=== PATIENT | male | born 1960 | race Caucasian/White ===

== ENCOUNTER → 2021-05-14 13:35 | Outpatient (CLI) | payer OTHER, SELFPAY ==
--- NOTE | 2021-05-14 13:45 | DI.CT.S_ITS ---
PROCEDURE: CT LUMBAR SPINE WO CON INDICATIONS: Spinal stenosis, lumbar region TECHNIQUE: Noncontrast 3 mm thick sections acquired from the T12 level to the sacrum. Sagittal and coronal reformats were constructed. For radiation dose reduction, the following was used: automated exposure control. COMPARISON: [facility] [place], RF, LUMBAR TRANSFORAMINAL HUBER, 04/03/2021, 16:10. [facility] [place], MR, MR LUMBAR SPINE WITHOUT CONTRAST, 10/04/2020, 11:12. FINDINGS: Image quality: Excellent. Bones: There is straightening of normal lumbar lordosis. Very mild levoscoliosis of lower lumbar spine centered at L4 level is seen. No acute vertebral body compression fractures. No suspicious lytic or blastic bony lesions. No pars defects. T12-L1: Mild degenerative endplate changes and loss of disc height. No significant disc bulge, canal stenosis or neural foraminal narrowing. L1-L2: Mild degenerative endplate changes and mild to moderate loss of disc height. Mild broad-based disc bulge with mild central canal stenosis. Bilateral facet arthrosis is also seen. No significant neural foraminal narrowing. L2-L3: There is moderate loss of disc height and degenerative endplate changes. Diffuse disc bulge and bilateral facet arthrosis is seen with mild central canal stenosis, no significant neural foraminal narrowing. L3-L4: Significant loss of disc height and moderate degenerative endplate changes. Broad-based disc bulge and bilateral facet arthrosis is seen causing moderate central canal stenosis and moderate to severe bilateral neural foraminal narrowing slightly worse on the right side. L4-L5: Significant loss of disc height and degenerative endplate changes are seen . There is broad-based disc bulge and bilateral facet arthrosis causing [id number] central canal stenosis and moderate to severe bilateral neural foraminal narrowing worse on the left side unchanged from previous MRI study. L5-S1: There is moderate loss of disc height and degenerative endplate changes. Broad-based disc bulge and bilateral facet arthrosis is seen with mild central canal stenosis and moderate left worse than right bilateral neural foraminal narrowing. Soft tissues: No retroperitoneal masses or hematomas. Visualized aorta is normal in caliber. IMPRESSION: 1. Mild levoscoliosis as above. No acute compression fracture or spondylolisthesis. 2. Degenerative disc disease throughout lumbar spine more prominent at L3-4 and L4-5 levels as described above not significantly changed from previous MR study. Dictated by: Rambo Pike M.D. on 05/14/2021 at 16:35 Approved by: Rambo Pike M.D. on 05/14/2021 at 16:54
== END ==
PROVIDERS: PCP Internal Medicine; Referring Provider Orthopaedic Surgery Orthopaedic Surgery of the Spine; Visit Provider Orthopaedic Surgery Orthopaedic Surgery of the Spine
DX: M48.062 Spinal stenosis, lumbar region with neurogenic claudication (principal); M51.36 Other intervertebral disc degeneration, lumbar region; M41.86 Other forms of scoliosis, lumbar region
CPT/HCPCS: 72131

== ENCOUNTER → 2022-05-01 13:53 | Outpatient (CLI) | payer OTHER, SELFPAY ==
--- NOTE | 2022-05-01 | DI.CT.S_ITS ---
PROCEDURE: CT LUMBAR SPINE WO CON INDICATIONS: SPINAL STENOSIS OF LUMBAR REGION TECHNIQUE: Noncontrast 3 mm thick sections acquired from the T12 level to the sacrum. Sagittal and coronal reformats were constructed. For radiation dose reduction, the following was used: automated exposure control. COMPARISON: [facility], CT, CT LUMBAR SPINE WO CON, 05/14/2021, 13:45. [facility]., MR, MR LUMBAR SPINE WITH/WITHOUT CONTRAST, 07/11/2021, 11:21. [facility], CR, XR LUMBAR SPINE WITH FLEXION EXTENSION 5 VIEWS, 09/28/2021, 9:42. FINDINGS: Image quality: Excellent. Bones: Mild levoconvex curvature of the lumbar spine. Multilevel degenerative retrolisthesis is seen measuring 3 mm at L2-3, 3 mm at L3-4, 2 mm at L4-5, and 2 mm at L5-S1. acute vertebral body compression fractures. No suspicious lytic or blastic bony lesions. No pars defects. T12-L1: Mild loss of disc space height with small posterior disc-osteophyte complex, which does not result in significant spinal canal stenosis or neural foraminal narrowing L1-L2: Mild loss of disc space height and mild circumferential disc bulging without significant spinal canal stenosis or neural foraminal narrowing. L2-L3: Mild loss of disc space height and circumferential disc bulging as well as grade 1 retrolisthesis of L2 on L3, which result in mild narrowing of the spinal canal and [id number] bilateral neural foraminal narrowing. L3-L4: Loss of disc space height and grade 1 retrolisthesis of L3 on L4 with moderate bilateral facet hypertrophy and buckling of the ligamentum flavum. Findings result in moderate to severe narrowing of the spinal canal with effacement of the bilateral lateral recesses and moderate to severe right and moderate left neural foraminal narrowing. L4-L5: Loss of disc space height and mild grade 1 anterolisthesis of L4 on L5 with circumferential disc bulging as well as mild to moderate bilateral facet hypertrophy and buckling of the ligamentum flavum. Findings result in moderate narrowing of the spinal canal with effacement of the lateral recesses and moderate right and moderate to severe left neural foraminal narrowing. L5-S1: Loss of disc space height and mild circumferential disc bulging as well as moderate bilateral facet hypertrophy, which result in moderate right and moderate to severe left neural foraminal narrowing without significant spinal canal stenosis. Soft tissues: No retroperitoneal masses or hematomas. Visualized aorta is normal in caliber. IMPRESSION: 1. Multilevel degenerative disc disease and facet hypertrophy as described in detail in the body of the report, as well as multilevel degenerative retrolisthesis and mild levoconvex curvature. 2. Moderate to severe spinal canal narrowing is seen at L3-4, minimally progressed when compared to the CT and MRI from 2021. 3. High-grade neural foraminal narrowing is seen at the L3-4 level on the right and the L4-5 and L5-S1 levels on the left. Approved by: Hung Riley M.D. on 05/01/2022 at 20:07
== END ==
PROVIDERS: PCP Internal Medicine; Referring Provider Orthopaedic Surgery Orthopaedic Surgery of the Spine; Visit Provider Orthopaedic Surgery Orthopaedic Surgery of the Spine
DX: M48.062 Spinal stenosis, lumbar region with neurogenic claudication (principal); M48.07 Spinal stenosis, lumbosacral region; M51.36 Other intervertebral disc degeneration, lumbar region; M51.37 Other intervertebral disc degeneration, lumbosacral region
CPT/HCPCS: 72131

== ENCOUNTER → 2022-05-07 13:56 | Outpatient (CLI) | payer OTHER, SELFPAY ==
[2022-05-07 15:34] LABS: Add Manual Diff / Slide Review NO; Basophils Absolute Auto 0 /uL (0-100); Basophils Percent Auto 0.5 % (0-2); Eosinophils Absolute Auto 600 /uL (0-450); Eosinophils Percent Auto 7.8 % (2-4); Hematocrit 40.1 % (41-53); Hemoglobin 13.6 g/dL (13.5-17.5); Lymphocytes Absolute Auto 2600 /uL (1100-4500); Lymphocytes Percent Auto 35.5 % (25-40); Mean Corpuscular HGB Conc 33.8 % (30-36); Mean Corpuscular Hemoglobin 29.9 PG (26-34); Mean Corpuscular Volume 88.3 fL (80-100); Monocytes Absolute Auto 800 /uL (0-900); Monocytes Percent Auto 10.6 % (3-14); Neutrophils Absolute Auto 3300 /uL (1500-7000); Neutrophils Percent Auto 45.6 % (50-75); Platelet Count 258 X10^3/uL (150-400); Red Blood Cell Count 4.54 X10^6/uL (4.5-5.9); Red Cell Distribution Width 13.6 % (11.6-14.8); White Blood Cell Count 7.3 X10^3/uL (4.5-11.0)
[2022-05-07 15:48] LABS: Hemoglobin A1C% w Est Avg Glu 5.7 % (4.0-6.0)
[2022-05-07 16:10] LABS: BUN Creatinine Ratio 12.9 (6-22); Blood Urea Nitrogen 12 mg/dL (9-20); Calcium 9.3 mg/dL (8.4-10.2); Carbon Dioxide 23 mmol/L (22-32); Chloride 104 mmol/L (98-107); Estimated Glomerular Filt Rate > 60 mL/min (>60); Glucose 102 mg/dL (80-110); HEMOLYSIS < 15 (0-50); Potassium 3.8 mmol/L (3.4-5.1); Sodium 138 mmol/L (137-145)
== END ==
PROVIDERS: PCP Internal Medicine; Referring Provider Orthopaedic Surgery Orthopaedic Surgery of the Spine; Visit Provider Orthopaedic Surgery Orthopaedic Surgery of the Spine
DX: Z01.818 Encounter for other preprocedural examination (principal); Z01.812 Encounter for preprocedural laboratory examination; R73.9 Hyperglycemia, unspecified
CPT/HCPCS: 36415; 80048; 83036; 85025; 93005

== ENCOUNTER 2022-06-12 06:28 | Inpatient (IN) | payer OTHER, SELFPAY ==
[2022-06-05 09:04] VITALS: BMI 31.0
[2022-06-12] VITALS (24 sets, daily range): BP systolic 92–138; BP diastolic 60–92; PULSE 64–97; RESP 12–18; TEMP 36.2–36.9; O2SAT 92–98; BMI 31.0
[2022-06-12] MEDS: LACTATED RINGERS 1,000 ML 42 ML IV ×4 (07:11→14:54)
[2022-06-12 07:12] LABS: COVID19 -Nasal RAPID Negative (Negative)
[2022-06-12] MEDS: PREGABALIN 75 MG CAPSULE PO (07:13)
--- NOTE | 2022-06-12 07:36 | PM.PREOP ---
Pre-operative Note COVID-19 COVID-19 status: Negative Result date/Date tested (Pos, Neg/Pending): 06/11/22 Criteria for continued procedure: Expected advancement of disease process, Possibility delay results in more complex future surgery or treatment, Increased loss of function, Continuing or worsening of significant or severe pain, Deterioration of the patient's condition or overall health and Delay expected to result in less-positive ultimate med/surg outcome Interval Note History & Physical reviewed/Exam performed by Physician: Yes Changes to H&P: No
[2022-06-12] MEDS: CLINDAMYCIN 900 MG/50 ML PIGGYBACK 50 MG IV ×3 (08:00→23:28)
--- NOTE | 2022-06-12 08:28 | SUR.OPER ---
Prone on spine table, head in foam head support, padded chest and pelvic supports, gel pad at knees, lower legs supported by pillows; nipples, genitalia and toes free of pressure, gelpad, placed between heels, arms secured on foam padded arm boards at <90 degrees abduction. Tape over blanket at thigh secured to table.
[2022-06-12] MEDS: BUPIVACAINE LIPOSOME 266 MG/20 ML VIAL INJ (08:39)
[2022-06-12] MEDS: BUPIVACAINE 0.25% (PF) 30 ML, EPINEPHrine 0.3 MG INJ (08:39)
[2022-06-12] MEDS: ACETAMINOPHEN IV 1,000 MG/100 ML VIAL 400 MG IV (09:15)
--- NOTE | 2022-06-12 13:00 | DI.RAD.S_ITS ---
PROCEDURE: XR LUMBAR SPINE 2-3V INDICATIONS: L3-4, L4-5, L5-S1 TLIF TECHNIQUE: 3 intraoperative fluoroscopic views of the lumbar spine were acquired. COMPARISON: None. FINDINGS: Intraoperative fluoroscopic images shows posterior transpedicular fusion hardware at L3-4 through L5-S1 levels with intervertebral spacer placement at these levels. IMPRESSION: Fluoro guidance was provided intraoperatively for posterior fusion at L3-4 through L5-S1 levels. Dictated by: Rambo Pike M.D. on 06/12/2022 at 13:13 Approved by: Rambo Pike M.D. on 06/12/2022 at 13:14
--- NOTE | 2022-06-12 13:13 | P.OP_ITS ---
Operative Date/Time/Diagnoses Date of procedure: 06/12/22 Time of procedure: 07:40 Pre-op diagnosis: 1. Lumbar spinal stenosis with radiculopathy 2. History of laminectomy with epidural scarring and radiculopathy 3. Lumbar disc herniation with radiculopathy Post-op diagnosis: same Procedure & Clinicians Procedure: 1. L3-4, L4-5, L5-S1 Postero-lateral and posterior interbody fusion 2. L3-4, L4-5, L5-S1 interbody cage placement. 3. L3-4, L4-5, L5-S1 decompressive laminectomy with bilateral facetecomies 4. L3-4, L4-5, L5-S1 Posterior segmental instrumentation 5. Mcgraw of bone marrow from iliac crest 6. Utilization of microsurgical technique and operating microscope 7. Utilization of robotic assisted navigation Same procedure as scheduled: Yes Indications: Patient has been having chronic back pain and worsening lumbar radiculopathy with history of work injury 2 years ago at the time of onset of his symptoms. Patient failed multiple conservative management with worsening pain weakness and numbness in his lower extremity. Patient has been having difficulty performing activity of daily living. After discussing risks benefits of treatment options, patient elected proceed with surgery. Surgeon: Juan Khanna [facility]plement[facility] Therapists: Sydney Brower Click Yes if Unassisted: No Anesthesia Type: General Operative Notes Closure Type: primary Specimen(s): none sent Prosthetic devices, grafts, tissues, transplants, or devices: Globus CREO MIS screws, Rise cages Applied: catheter Estimated Blood Loss (mL): 850 Blood products transfused: none Procedure in detail: Patient was seen in the preoperative area. Risks and benefits of the surgery was discussed with the patient. Informed consent was obtained from the patient and placed in the chart. Surgical site was marked. Patient was taken to the operative room. General anesthesia was administered. Prophylactic antibiotic was given to the patient less than 30 min before the incision was made. Patient was placed into a prone position on the Allen table. Patient's back was then prepped and draped in the sterile fashion. Time-out was performed at this time. After patient was prepped and draped, patient's PSIS was palpated and marked bilaterally. Small 1 cm incision was made over the PSIS for placement of the reference probes. Two trocar was placed into the PSIS 1 on each side. The reference probe was attached to the trocar of the reference apparatus. At this time the C-arm imaging was used to confirm AP and lateral of L3-4, L4- L5, L5-S1 vertebrae and merged the C-arm imaging using the [employer] robotic navigation system with the CT of the lumbar spine. After successful merging was completed and confirmed, skin marker was used to kam out the skin incision using the [employer] robotic arm. Bilateral incision was made at this time. Pre templated trajectory was used and guided using the [employer] robotic navigation system for bilateral L3, L4, L5, S1 pedicle screw placement. This was done by using the robotic arm to guide the high-speed bur to make a cortical entry point. Next a drill was placed also using the robotic arm and guided using the navigation system drilling partially through bilateral L3, L4, L5 and S1 pedicles. Next L3, L4, L5, S1 pedicle screws it was pre templated and measured was placed onto the power taxi driver and inserted into the pedicles bilaterally. After all 8 screws were placed C-arm imaging was taken of both AP and lateral to confirm the placement. Excellent placement of the screws were confirmed and a matched precisely with the pre planned screw placement using the navigation system. MARs retractor was inserted using [employer] guidence. Globus MARS retractors was placed inside the incision and docked onto the L3, L4 and L5 lamina. Using microsurgical technique and operating microscope, a L3, L4, L5 laminectomy and L3-4, L4-5, L5-S1 facetectomy was performed using a Kerrison rongeur. Patient was found have severe lateral recess and neural foramen stenosis which was fully decompressed after the laminectomy facetectomy. More than 75% of the facets were removed during the process of decompression rendering L3-4, L4-5, L5-S1 level grossly unstable and required a fusion procedu re at the same time. Patient was also found to have significant epidural scarring from previous laminectomy which was carefully dissected and removed to further decompress the lateral recess and neural foramen. The disc space at L3- 4, L4-5, L5-S1 was identified, and a total diskectomy was performed at L3-4, L4- 5, L5-S1 level. The endplates were decorticated using a rasp and shaver. The total diskectomy and decortication was performed at L3-4, L4-5, L5-S1 level in order to to accomplish a L3-4, L4-5, L5-S1 fusion. The local bone from the laminectomy and facetectomy was saved for local bone grafting. After the total diskectomy and decortication was completed, Trifecta bone graft material was combined with local bone that was harvested earlier. At this time, a separate skin is incision was made over the iliac crest. A Jamshidi needle was inserted into the iliac crest through a separate skin incision. 5 cc of bone marrow aspiration was obtained through the separate skin incision using a Jamshidi needle from the iliac crest. The bone marrow aspiration was combined with local bone and the Trifecta bone grafting material. The bone grafting material was placed into the L3-4, L4-5, L5-S1 interbody space along with a expandable cage. The cage was expanded to its maximum height using the torque limiting screwdriver. The disc preparation as well as the cage insertion were also performed under navigation guidance. After the cage was placed, AP and lateral C-arm imaging was taken to confirm placement of the cage and excellent position was confirmed. Globus MARS retractor was inserted and docked onto the L3-4, L4-5, L5-S1 posterolateral gutter on the right side. Using the power drill, posterior- lateral decortication was performed at L3-4, L4-5, L5-S1 level until bleeding cortical bone was identified. The remaining bone grafting material was placed into the L3-4, L4-5, L5-S1 posterior lateral gutter he order to accomplish posterolateral fusion at the L3-4, L4-5, L5-S1 level. At this time the tulips were attached to the L3, L4, L5, S1 pedicle screw shanks. After measuring the length of the rods, they were inserted into the tulips of the pedicle screws and locked in place using locking caps and torque limiting screwdriver bilaterally. Total 6 caps and 2 titanium rods was used in order to complete the posterior instrumentation construct. After all the hardware was placed, and confirmed with AP and lateral C-arm imaging, the wound was then irrigated with sterile normal saline and packed with Ray-Liu gauze for 3 min to accomplish hemostasis. After the gauze was removed the deep fascia was closed with #1 Vicryl suture. The subcutaneous layer was closed with 2-0 Vicryl. The skin was closed with skin raymundo. Patient tolerated the procedure well. There were no complications. Neuro monitoring system was used to monitor patient's neurologic status throughout entire procedure. There was no disturbance of the neural monitoring signals throughout the case. Complications: none Post-operative Condition: stable Disposition: PACU Plan for aftercare: Admit to inpatient hospital
[2022-06-12] MEDS: HYDROMORPHONE 2 MG INJ IV ×5 (13:43→14:28)
[2022-06-12] MEDS: hydrOXYzine pamoate 25 MG CAPSULE 50 MG PO (14:07)
[2022-06-12] MEDS: OXYCODONE IR 5 MG TABLET PO ×2 (14:15→14:46)
--- NOTE | 2022-06-12 15:28 | PT-IP ANOTE ---
Called RN and RN noted pt just arrived on floor and not appropriate for PT.
[2022-06-12] MEDS: TIZANIDINE 4 MG TABLET PO (15:51)
[2022-06-12] MEDS: ACETAMINOPHEN 325 MG TABLET 650 MG PO ×2 (15:51→21:17)
[2022-06-12] MEDS: HYDROMORPHONE 0.5 MG INJ IV ×2 (16:41→21:13)
[2022-06-12] MEDS: OXYCODONE IR 10 MG TABLET PO ×2 (19:09→23:28)
[2022-06-12] MEDS: hydrOXYzine pamoate 25 MG CAPSULE PO ×2 (19:09→23:28)
[2022-06-12] MEDS: METOPROLOL ER 25 MG TABLET 12.5 MG PO (21:14)
[2022-06-12] MEDS: SENNOSIDES 8.6 MG TABLET 17.2 MG PO (21:14)
[2022-06-12] MEDS: lisinopriL 20 MG TABLET PO (21:15)
[2022-06-12] MEDS: ATORVASTATIN 20 MG TABLET PO (21:16)
[2022-06-12] MEDS: PANTOPRAZOLE DR 20 MG TABLET PO (21:16)
[2022-06-12] MEDS: DOCUSATE 100 MG CAPSULE PO (21:18)
[2022-06-13] VITALS (11 sets, daily range): BP systolic 85–140; BP diastolic 40–83; PULSE 68–78; RESP 16–20; TEMP 36.3–37.3; O2SAT 91–97
--- NOTE | 2022-06-13 01:51 | PC.NURSE ---
Pt got out of bed to brush his teeth. He also ambulated in the room , denies dizzines.
[2022-06-13] MEDS: hydrOXYzine pamoate 25 MG CAPSULE PO (03:09)
[2022-06-13] MEDS: OXYCODONE IR 10 MG TABLET PO ×5 (03:09→22:23)
[2022-06-13 05:46] LABS: Hematocrit 30.7 % (41-53); Hemoglobin 10.5 g/dL (13.5-17.5)
[2022-06-13] MEDS: TIZANIDINE 4 MG TABLET PO ×3 (05:48→21:42)
[2022-06-13] MEDS: HYDROMORPHONE 0.5 MG INJ IV ×3 (08:20→21:41)
[2022-06-13] MEDS: ACETAMINOPHEN 325 MG TABLET 650 MG PO ×3 (09:35→22:25)
[2022-06-13] MEDS: DOCUSATE 100 MG CAPSULE PO ×2 (09:35→21:43)
[2022-06-13] MEDS: PANTOPRAZOLE DR 20 MG TABLET PO ×2 (09:35→21:42)
[2022-06-13] MEDS: TRAMADOL 50 MG TABLET PO ×2 (09:35→15:24)
--- NOTE | 2022-06-13 10:10 | PT.IIE ---
Current Diagnoses Foot drop, left foot (06/12/22) Spondylolisthesis, lumbar region (06/12/22) Spinal stenosis, lumbar region with neurogenic claudication (06/12/22) Surgery Performed Operation Date: 06/12/22 07:45 Actual Procedures p L3-4, L4-5,L5-S1 TLIF w/ posterior Instrumentation -Robotic - Juan Khanna MD Surgical History (Last Reviewed 06/13/22 @ 10:13 by Anisa Maguire PA-C) H/O vasectomy History of open reduction and internal fixation (ORIF) procedure (12/2021) History of open reduction and internal fixation (ORIF) procedure (1982) History of prostatectomy (~2015) Hx of heart artery stent (05/2005) Hx of shoulder surgery Medical History (Last Reviewed 06/13/22 @ 10:13 by Anisa Maguire PA-C) Acute non-ST segment elevation myocardial infarction (05/2005) CAD (coronary artery disease) DDD (degenerative disc disease) Eczema Erectile dysfunction GERD (gastroesophageal reflux disease) Gout History of prostate cancer (~2015) HLD (hyperlipidemia) HTN (hypertension) Hypercholesteremia Left foot drop Low back pain Peanut allergy Sciatica Seasonal allergies Spinal stenosis Tachycardia Trimalleolar fracture (01/2022) Vitamin D deficiency Physical Therapy Inpatient Evaluation/Re-Eval M1 PT/OT-IP Prior Functional Status Start: 06/13/22 10:14 Freq: NEEDED Status: Active Protocol: Document 06/13/22 09:45 DCW (Rec: 06/13/22 10:28 DC [id number]) Medical Review Prior Functional Status Medical History Reviewed Yes Diet/Fluid Consistency Regular Communication WNL Mobility and Gait WNL Social History Household Members spouse Living Arrangements House Number of Floors (Floors) Two Floors Number of Stairs To Enter/Railing? 2 JIMY, no railing 16 stairs to second level, railing M2 PT-IP Current Condition Start: 06/13/22 10:14 Freq: NEEDED Status: Active Protocol: Document 06/13/22 09:45 DCW (Rec: 06/13/22 10:28 DCW [id number]) Physical Therapy Current Condition Current Condition Evaluation Date 06/13/22 Treatment Diagnosis L3-4-5-S1 TLIF Onset Date 06/12/22 M3 PT-IP Subjective Start: 06/13/22 10:14 Freq: NEEDED Status: Active Protocol: Document 06/13/22 09:45 DCW (Rec: 06/13/22 10:28 [facility] [id number]) Subjective Physical Therapy Visit Type Type Initial Evaluation Visit Start Time 09:45 Visit Stop Time 10:10 Total Visit Minutes 25 Notes Pt semi-reclined in bed upon therapist entering room, (who is an RN) at bedside. Reports he has been having difficulty with pain control, rating pain 6/10 at rest. Did not sleep well last night, has been OOB once late last night . Agreeable to PT, motivated to get up and move some despite pain. 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 Patient Goals Return home Therapy Pain Assessment Pain When Pain Assessed At Rest Pain Present Pain Present Pain Reported Location back Intensity 6 Scale Used Numeric (0 - 10) M4 PT-IP Mobility and Gait Start: 06/13/22 10:14 Freq: NEEDED Status: Active Protocol: Document 06/13/22 09:45 DCW (Rec: 06/13/22 10:28 [facility] [id number]) PT-Bed Mobility Assessment Rolling Type of Rolling Log Rolling,Roll to Right Level of Assist Minimal Assistance,1 Person Assistance Supine to Sit Supine to Sit Minimal Assistance,1 Person Assistance,Head of Bed Elevated Scooting Scooting to Edge of Bed Contact Guard Assistance Scooting Up and Down in Bed Contact Guard Assistance PT-Transfer Assessment Sit to and From Stand Sit to and from Stand Standby Assistance,Use of Upper Extremities Equipment Transfer Assistive Device Bed Rail,Front Wheeled Walker Comments Mobility Comments Bed mobility performed making proper use of log rolling without verbal instruction, assisted in log roll and side-lying->sit. Pt performed sit->stand SBA using UEs, bed rails, and FWW. Upon standing, BP measured 125/82. Gait Assessment Gait Gait Assistance Required: Standby Assistance Distance (Feet) 400 Able to Maintain Weight Bearing Status Yes During Gait Assistive Devices Assistive Device Front Wheeled Walker Gait Deviations General Gait Pattern Flexed Trunk Factors Limiting Gait Function Factors Limiting Gait Function Pain Comments Gait Comments Pt ambulated in hallway from room, down to stairs, up/down stairs, then down to opposite end of hallway near ICU, finally back to room. Other than forward lean on UEs using FWW, did very well with gait pattern and stability, noted no light-headedness, pain improved when walking. Stair Climbing Assessment Evaluation Level of Assist On Stairs Standby Assistance Devices Stair Climbing Assistive Devices Left Railing,Right Railing Technique/Endurance Stair Climbing Direction Ascend and Descend Stair Climbing Technique Step Over Step Number of Steps Climbed 3 Query Text: Comments Stair Climbing Comments Pt ascended/descended 3 steps using bilateral railing, SBA, no signs of difficulty, LOB, or weakness. PT-Balance Assessment Sitting Balance and Reactions Static Sitting Balance Ability Good Dynamic Sitting Balance Ability Good Standing Balance and Reactions Static Standing Balance Ability Good Dynamic Standing Balance Ability Good M5 PT-IP Objective Assessments Start: 06/13/22 10:14 Freq: NEEDED Status: Active Protocol: Document 06/13/22 09:45 DCW (Rec: 06/13/22 10:28 [facility] [id number]) Orientation Orientation/Cognition Level of Alertness Alert Orientation Name,Birthday,Month,Date,Year, Place,Situation Safety Awareness Understands Safety Issues Memory Description No Deficits Noted Gross Range of Motion Lower Extremity ROM Assessment Within Functional Limits Strength Lower Extremity Strength Assessment Within Functional Limits M6 PT-IP Treatment Start: 06/13/22 10:14 Freq: NEEDED Status: Active Protocol: Document 06/13/22 09:45 DCW (Rec: 06/13/22 10:28 [facility] [id number]) Physical Therapy Treatment Education Education Provided Precautions M7 PT-IP Assessment and Plan Start: 06/13/22 10:14 Freq: NEEDED Status: Active Protocol: Document 06/13/22 09:45 DCW (Rec: 06/13/22 10:28 [facility] [id number]) PT Summary Assessment and Plan Potential Rehabilitation Potential Excellent Status of Condition at Evaluation Stable Summary Impairments Pain,ROM,Bed Mobility, Transfers,Activity Tolerance Assessment Summary Pt doing very well currently POD #1, biggest struggle was bed mobility and sit->stand transfers, able to assist well, did not require any verbal cues to maintain precautions. After standing, pt noted he felt much better, and was happy to get up and walk more. No loss of balance or shortness of breath ambulating in hallway, did not have any difficulty with stairs. Pt instructed to get up with nursing (or , who is an RN), and walk. Will likely benefit from continued in-patient PT to increase independence with bed mobility and transfers. Will likely be safe to return home when medically cleared. Goals Bed Mobility Goal Independent Transfer Goal Independent Other Goals Ambulate 200' SBA without use of AD Days to Meet Goals 2 Frequency of Treatment Frequency Of Treatment Twice a Day Treatment Plan Physical Therapy Treatment Plan Bed Mobility Training,Transfer Training,Gait Training,Post Op Education,Discharge Planning Precautions Lumbar Precautions Log Roll,No Twisting,Limit Bending,Lifting Restriction of 10 lbs,Gait Belt above Incisional Area Weight Bearing Status Weight Bearing Status Weight Bear as Tolerated Recommendations To Nursing Amount of Assist Needed Standby Assistance Discharge Recommendations PT Discharge Recommendations Home,Home with Assistance Transportation Needs at Discharge Private Vehicle
--- NOTE | 2022-06-13 10:12 | PM.PNPO.1 ---
Subjective Subjective Date Patient Seen: 06/13/22 Time Patient Seen: 10:12 Interval history: Patient is complaining of moderate low back pain. His is at bedside, she is an ER nurse at [employer]. He notes his numbness and tingling in his lower extremities prior to surgery has resolved. He is not gotten up with physical therapy yet. Exam Vital Signs (past 8 hours): - 06/13/22 06:09 06/13/22 09:40 06/13/22 09:40 Temperature 98.2 F Pulse Rate 69 70 70 Respiratory Rate 16 Blood Pressure 107/61 100/59 L 100/59 L Pulse Oximetry 96 Oxygen Flow Rate 0 Oxygen Delivery Method Room Air Oxygen Flow Rate 0 Narrative Exam Narrative: Pleasant 61-year-old male, resting comfortably in bed, no acute distress. Lumbar dressings are clean, dry, intact. No surrounding erythema, induration, or migel pus. Bilateral lower extremity: Motor functions are grossly intact, sensation is grossly intact to light touch, calves are soft and nontender to palpation. Objective Labs 06/13/22 05:11 Labs: Laboratory Results - last 24 hr 06/13/22 05:11 Hgb 10.5 L Hct 30.7 L PFSH Medical History Acute non-ST segment elevation myocardial infarction (05/2005) CAD (coronary artery disease) DDD (degenerative disc disease) Eczema Erectile dysfunction GERD (gastroesophageal reflux disease) Gout History of prostate cancer (~2015) HLD (hyperlipidemia) HTN (hypertension) Hypercholesteremia Left foot drop Low back pain Peanut allergy Sciatica Seasonal allergies Spinal stenosis Tachycardia Trimalleolar fracture (01/2022) Vitamin D deficiency Surgical History H/O vasectomy History of open reduction and internal fixation (ORIF) procedure (12/2021) History of open reduction and internal fixation (ORIF) procedure (1982) History of prostatectomy (~2015) Hx of heart artery stent (05/2005) Hx of shoulder surgery Social History household members: spouse Smoking Status: Former smoker alcohol intake: current Assessment & Plan Post-op Postoperative Procedures: Procedures Operation Date: 06/12/22 07:45 Actual Procedure Side Surgeon p L3-4, L4-5,L5-S1 TLIF w/ posterior Instrumentation -Robotic Juan Khanna MD Postoperative day: 1 Postoperative status narrative: -stable status post L3-4, L4-5, L5-S1 TLIF with posterior instrumentation Postoperative plan narrative: -mobilize with PT. Weightbearing as tolerated with front wheel walker or cane. No bending, lifting, twisting x6 weeks -continue with multimodal pain management. Added tramadol as needed for breakthrough pain. -DC urinary catheter once up and mobilizing, hopefully today -disposition: Home with , likely tomorrow Quality VTE Deep Vein Thrombosis/Pulmonary Embolism Present on Admission: No
--- NOTE | 2022-06-13 11:44 | OT.IP.EVAL ---
Current Diagnoses Foot drop, left foot (06/12/22) Spondylolisthesis, lumbar region (06/12/22) Spinal stenosis, lumbar region with neurogenic claudication (06/12/22) Surgery Performed Operation Date: 06/12/22 07:45 Actual Procedures p L3-4, L4-5,L5-S1 TLIF w/ posterior Instrumentation -Robotic - Juan Khanna MD Past Medical History (Last Reviewed 06/13/22 @ 10:13 by Anisa Maguire PA-C) Acute non-ST segment elevation myocardial infarction (05/2005) CAD (coronary artery disease) DDD (degenerative disc disease) Eczema Erectile dysfunction GERD (gastroesophageal reflux disease) Gout History of prostate cancer (~2015) HLD (hyperlipidemia) HTN (hypertension) Hypercholesteremia Left foot drop Low back pain Peanut allergy Sciatica Seasonal allergies Spinal stenosis Tachycardia Trimalleolar fracture (01/2022) Vitamin D deficiency Surgical History (Last Reviewed 06/13/22 @ 10:13 by Anisa Maguire PA-C) H/O vasectomy History of open reduction and internal fixation (ORIF) procedure (12/2021) History of open reduction and internal fixation (ORIF) procedure (1982) History of prostatectomy (~2015) Hx of heart artery stent (05/2005) Hx of shoulder surgery Occupational Therapy Inpatient Evaluation/Re-Eval M1 PT/OT-IP Prior Functional Status Start: 06/13/22 10:14 Freq: NEEDED Status: Active Protocol: Document 06/13/22 11:20 [facility] (Rec: 06/13/22 13:04 [facility] [id number]) Medical Review Prior Functional Status Medical History Reviewed Yes Diet/Fluid Consistency Regular Communication WNL Mobility and Gait WNL Activities of Daily Living and IADL's increased pain during ADL needs per pt Social History Household Members spouse Living Arrangements House Number of Floors (Floors) Two Floors Number of Stairs To Enter/Railing? 2 JIMY, no railing 16 stairs to second level, railing Home Environment High Toilet,Walk in Shower, Built-In Shower Seat M2 OT-IP Current Condition Start: 06/13/22 12:45 Freq: Status: Active Protocol: Document 06/13/22 11:20 [facility] (Rec: 06/13/22 13:04 [facility] [id number]) Occupational Therapy Current Condition Current Condition Evaluation Date 06/13/22 Treatment Diagnosis S/p L3-4, l4-5, L5-S1 Diagnosis Onset Date 06/12/22 Post Operative Precautions Lumbar Precautions Log Roll,No Twisting,Limit Bending,Lifting Restriction of 10 lbs,Gait Belt above Incisional Area M3 OT- IP Subjective and Pain Start: 06/13/22 12:45 Freq: Status: Active Protocol: Document 06/13/22 11:20 [facility] (Rec: 06/13/22 13:04 [facility] [id number]) OT- Subjective Occupational Therapy Visit Type Type Initial Evaluation Visit Start Time 11:20 Visit Stop Time 11:44 Total Visit Minutes 24 Occupational Therapy Visit Comments Patient Comments Pt agreed to get up to the recliner for lunch. Pt's present in addition to his friends. 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 Patient/Caregiver Goals To go home. OT Pain Assessment Pain When Pain Assessed During Mobility Pain Present Pain Present Pain Reported Location back Intensity 7 Scale Used Numeric (0 - 10) M4 OT- IP ADL's Start: 06/13/22 12:45 Freq: Status: Active Protocol: Document 06/13/22 11:20 [facility] (Rec: 06/13/22 13:04 [facility] [id number]) OT [id number] General Evaluation Self-Feeding Ability Independent OT ADL-Grooming Comments OT Grooming Comments not performed OT ADL-Oral Care Comments Oral Care Comments Educated best to spit into a cup to best follow his back precautions. OT ADL-Dressing General Eval Lower Body Dressing Ability Maximum Assistance Areas Needing Assistance Socks Comments OT Dressing Comments Showed pt use of socks aid and university teacher to best follow and increased his ease for LB dressing needs. OT ADL-Toileting Comments OT Toileting Comments Pt not having to go, educated may be best to stand and reach back to wipe or get assist. OT ADL-Bathing Comments OT Bathing Comments Pt may benefit from a shower chair. M5 OT- IP IADL's Start: 06/13/22 12:45 Freq: Status: Active Protocol: Document 06/13/22 11:20 [facility] (Rec: 06/13/22 13:04 [facility] [id number]) OT-Instrumental Activities of Daily Living Home Safety Awareness Home Safety Comments Pt's to be home to assist pt for any needs as needed. M6 OT- IP Functional Cognition Start: 06/13/22 12:45 Freq: Status: Active Protocol: Document 06/13/22 11:20 [facility] (Rec: 06/13/22 13:04 [facility] [id number]) Cognitive Factors Limiting Selfcare Function Cognitive Ability Level of Alertness Alert Patient Orientation Name,Place,Situation Attention Span Ability Capable of Focused Attention, Capable of Sustained Attention Ability to Follow Commands Able to Follow One Step Commands Cognitive Comments Cognitive Assessment Comments Pt able to follow commands for back precautions for ADL and mobility need. OT- Vision and Hearing OT- Hearing Assessment OT- Hearing Assessment WFL OT- Vision Assessment Visual Acuity Glasses All The Time M7 OT- IP Mobility and Balance Start: 06/13/22 12:45 Freq: Status: Active Protocol: Document 06/13/22 11:20 [facility] (Rec: 06/13/22 13:04 [facility] [id number]) OT- Bed Mobility Assessment Supine to Sit Supine to Sit Assist Moderate Assistance OT-Transfer Assessment Sit to and From Stand Sit to and from Stand Contact Guard Assistance Transfers Transfer Ability Standby Assistance Technique Transfer Destination Bed,Chair Transfer Technique Stand Step Pivot Devices Transfer Assistive Devices None,Front Wheeled Walker Comments Mobility Comments MODA to help log roll and get upright. Pt would benefit from a bed rail or have the hold a fww in place so pt able to get up easier. Pt not sure if he is wanting a FWW at this time. OT- Balance Assessment Sitting Balance and Reactions Static Sitting Balance Ability Good Dynamic Sitting Balance Ability Good Standing Balance and Reactions Static Standing Balance Ability Good Dynamic Standing Balance Ability Good M8 OT- IP Objective Assessments Start: 06/13/22 12:45 Freq: Status: Active Protocol: Document 06/13/22 11:20 [facility] (Rec: 06/13/22 13:04 [facility] [id number]) OT-Muscle Tone Assessment Muscle Tone WNL Yes M9 OT- IP Assessment and Plan Start: 06/13/22 12:45 Freq: Status: Active Protocol: Document 06/13/22 11:20 [facility] (Rec: 06/13/22 13:04 [facility] [id number]) OT Summary Assessment and Plan Potential Rehabilitation Potential Good Analytic Complexity at Evaluation Low Summary OT Impairments Pain,Balance,Functional Mobility,Grooming,Dressing, Toileting,Bathing,Shower Transfers Progress Towards Goals Progressing Toward Goals,Slow Progress due to Pain Assessment Summary Pt low complexity and main barrier is pain and needing MODA for log rolling needs. Pt will benefit from LB dressing equipment or assist from his . OT suggested for pt to get a FWW, however pt feels that he may not need it. Able to talk to PT to assess in PM . Goals Grooming Goal Independent Dressing Goal Minimal Assistance Toileting Goal Minimal Assistance Bathing Goal Minimal Assistance Toilet Transfer Goal Independent Shower Transfer Goal Standby Assistance Patient/Caregiver Education Goal Caregiver Independent Assisting Patient Days to Meet Goals 5 Frequency of Treatment Frequency Of Treatment Once a Day Treatment Plan OT Treatment Plan ADL Training,Functional Mobility,Patient/Family Education,Discharge Planning Other Treatment Recommendations and Next shower Treatment Focus Discharge Recommendations OT Discharge Recommendations Home with Assistance Home Equipment Needs Shower chair Transportation Needs at Discharge Private Vehicle
--- NOTE | 2022-06-13 14:40 | PT.IPTN ---
Current Diagnoses Foot drop, left foot (06/12/22) Spondylolisthesis, lumbar region (06/12/22) Spinal stenosis, lumbar region with neurogenic claudication (06/12/22) Surgery Performed Operation Date: 06/12/22 07:45 Actual Procedures p L3-4, L4-5,L5-S1 TLIF w/ posterior Instrumentation -Robotic - Juan Khanna MD Physical Therapy Treatment Note M2 PT-IP Current Condition Start: 06/13/22 10:14 Freq: NEEDED Status: Active Protocol: Document 06/13/22 09:45 [facility] (Rec: 06/13/22 10:28 DCW [id number]) Physical Therapy Current Condition Current Condition Evaluation Date 06/13/22 Treatment Diagnosis L3-4-5-S1 TLIF Onset Date 06/12/22 M3 PT-IP Subjective Start: 06/13/22 10:14 Freq: NEEDED Status: Active Protocol: Document 06/13/22 15:15 TS (Rec: 06/13/22 15:36 TS [id number]) Subjective Physical Therapy Visit Type Type Treatment Note Visit Start Time 14:40 Visit Stop Time 15:05 Total Visit Minutes 25 Notes Vitals BP 90/53 supine, 81/53 sitting EOB. Physical Therapy Visit Comments Patient Comments Pt reports pain at the incision of surgery and he has been hypotensive. Patient Goals Return home Therapy Pain Assessment Pain When Pain Assessed During Mobility Pain Present Pain Present Pain Reported M4 PT-IP Mobility and Gait Start: 06/13/22 10:14 Freq: NEEDED Status: Active Protocol: Document 06/13/22 15:15 TS (Rec: 06/13/22 15:36 TS [id number]) PT-Bed Mobility Assessment Rolling Type of Rolling Log Rolling,Roll to Right Level of Assist Standby Assistance Supine to Sit Supine to Sit Standby Assistance,1 Person Assistance,Head of Bed Elevated Scooting Scooting to Edge of Bed Standby Assistance Scooting Up and Down in Bed Standby Assistance PT-Transfer Assessment Sit to and From Stand Sit to and from Stand Standby Assistance Equipment Transfer Assistive Device Bed Rail,Front Wheeled Walker Comments Mobility Comments Pt found resting in bed, agreeable to PT session. BP 90 /53 supine. Logroll SBA with LUE support and elbow pushing to upright trunk, LEs off EOB. Pt sitting EOB with no UE support maintaining midline, some slight dizziness, BP taken 81/53. Pt performed sit to stand no AD or UE support. He ambulated ~5' in room with no AD, swaying and unsteady, used FWW to ambulate ~300' in hallway, no swaying, step thru gait. Sit to supine SBA, logroll back into bed SBA. Pt was elft in room, call light nearby, asking for nursing, RN notified. Gait Assessment Gait Gait Assistance Required: Standby Assistance Distance (Feet) 300 Able to Maintain Weight Bearing Status Yes During Gait Assistive Devices Assistive Device Front Wheeled Walker Factors Limiting Gait Function Factors Limiting Gait Function Pain Comments Gait Comments See mobility comments. PT-Balance Assessment Sitting Balance and Reactions Static Sitting Balance Ability Good Dynamic Sitting Balance Ability Good Standing Balance and Reactions Static Standing Balance Ability Good Dynamic Standing Balance Ability Good M5 PT-IP Objective Assessments Start: 06/13/22 10:14 Freq: NEEDED Status: Active Protocol: Document 06/13/22 09:45 DCW (Rec: 06/13/22 10:28 DCW [id number]) Orientation Orientation/Cognition Level of Alertness Alert Orientation Name,Birthday,Month,Date,Year, Place,Situation Safety Awareness Understands Safety Issues Memory Description No Deficits Noted Gross Range of Motion Lower Extremity ROM Assessment Within Functional Limits Strength Lower Extremity Strength Assessment Within Functional Limits M6 PT-IP Treatment Start: 06/13/22 10:14 Freq: NEEDED Status: Active Protocol: Document 06/13/22 15:15 TS (Rec: 06/13/22 15:36 TS [id number]) Physical Therapy Treatment Education Education Provided Precautions Other Treatments Other Treatment Performed Pt recalled 3/3 precautions. M7 PT-IP Assessment and Plan Start: 06/13/22 10:14 Freq: NEEDED Status: Active Protocol: Document 06/13/22 15:15 TS (Rec: 06/13/22 15:36 TS [id number]) PT Summary Assessment and Plan Potential Rehabilitation Potential Excellent Status of Condition at Evaluation Stable Summary Impairments Pain,ROM,Bed Mobility, Transfers,Activity Tolerance Assessment Summary Pt progressed logroll to SBA with BUE support for uprighting trunk. He performed sit to stand no AD SBA and ambulated no AD ~5' in room, pt unsteady and swaying. He ambulated in hallway ~300' with FWW with a normal gait. He is hypotensive and reported some dizziness sitting EOb, nursing not concerned at this time. PT is recommending return home with assist from family. Goals Bed Mobility Goal Independent Transfer Goal Independent Other Goals Ambulate 200' SBA without use of AD Days to Meet Goals 2 Frequency of Treatment Frequency Of Treatment Twice a Day Treatment Plan Physical Therapy Treatment Plan Bed Mobility Training,Transfer Training,Gait Training,Post Op Education,Discharge Planning Precautions Lumbar Precautions Log Roll,No Twisting,Limit Bending,Lifting Restriction of 10 lbs,Gait Belt above Incisional Area Weight Bearing Status Weight Bearing Status Weight Bear as Tolerated Recommendations To Nursing Amount of Assist Needed Standby Assistance Discharge Recommendations PT Discharge Recommendations Home,Home with Assistance Transportation Needs at Discharge Private Vehicle
--- NOTE | 2022-06-13 15:00 | CM.DANOTE ---
Discharge Planning/Care Management CM Discharge Assessment Start: 06/13/22 14:55 Freq: Status: Active Protocol: Document 06/13/22 14:55 BERNARDO (Rec: 06/13/22 14:59 BERNARDO [id number]) Discharge Planning Assessment Assigned [employer] Sales Representative UZIEL Tovar DPOA/Assigned Designee Name garth Boland Contact Information [phone] Advance Directives? Yes Advance Directives on File No History Provided By Patient,Medical Record Prior Living Arrangements House Household Members spouse Type of transporation used prior to Drives own vehicle admit Independent with ADL's Yes Is patient alert and oriented? Yes Patient/Family Preference OP PT Therapy Barriers to Discharge No Comment Patient is a 61 yo male, resident of [place], POD1 from [facility] by Dr Khanna Patient is indp at baseline, lives w/spouse, who is an RN, and planned to return home w/ family to assist and therapies have cleared patient for this plan Plan: Discharge home expected when medically cleared, w/ assist from family and close outpatient follow up No CM needs identified Discharge Plan Home Transportation Arrangement Family Referrals Initiated None needed
[2022-06-13] MEDS: SENNOSIDES 8.6 MG TABLET 17.2 MG PO (21:42)
[2022-06-13] MEDS: lisinopriL 20 MG TABLET PO (21:42)
[2022-06-13] MEDS: METOPROLOL ER 25 MG TABLET 12.5 MG PO (21:43)
[2022-06-13] MEDS: ATORVASTATIN 20 MG TABLET PO (21:43)
[2022-06-13] MEDS: SODIUM CHLORIDE 0.9% 1,000 ML 1000 ML IV (23:46)
[2022-06-14] VITALS (10 sets, daily range): BP systolic 93–142; BP diastolic 57–82; PULSE 75–88; RESP 18–22; TEMP 36.9–37.5; O2SAT 93–98
[2022-06-14] MEDS: OXYCODONE IR 10 MG TABLET PO ×6 (01:19→21:17)
[2022-06-14] MEDS: ACETAMINOPHEN 325 MG TABLET 650 MG PO ×4 (03:51→21:34)
[2022-06-14] MEDS: hydrOXYzine pamoate 25 MG CAPSULE PO ×5 (03:52→21:17)
[2022-06-14 05:50] LABS: Hematocrit 27.4 % (41-53); Hemoglobin 9.6 g/dL (13.5-17.5)
[2022-06-14] MEDS: TIZANIDINE 4 MG TABLET PO ×3 (06:56→23:13)
--- NOTE | 2022-06-14 07:55 | PM.PNPO.1 ---
Subjective Subjective Date Patient Seen: 06/14/22 Time Patient Seen: 07:55 Interval history: Patient is complaining of moderate low back pain this morning. He is using oxycodone and tramadol. He worked with physical therapy yesterday which went well. He is complaining of left greater than right leg pain, which is different than his preoperative pain. He is still in a lot of pain in his unsure if he will be ready to discharge home today. Exam Vital Signs (past 8 hours): - 06/14/22 02:00 06/14/22 04:00 06/14/22 06:00 Temperature 98.4 F 99.1 F 98.4 F Pulse Rate 88 79 76 Respiratory Rate 19 18 Blood Pressure 118/70 121/71 117/80 Pulse Oximetry 96 98 95 Oxygen Flow Rate 0 0 0 Oxygen Delivery Method Room Air Oxygen Flow Rate 0 Narrative Exam Narrative: Pleasant 61-year-old male, resting comfortably in bed, no acute distress. Lumbar dressing is clean, dry, intact. No surrounding erythema, induration, or migel pus. Bilateral lower extremity motor functions are grossly intact, sensation is grossly intact to light touch, calves are soft and nontender palpation. Objective Labs 06/14/22 05:33 Labs: Laboratory Results - last 24 hr 06/14/22 05:33 Hgb 9.6 L Hct 27.4 L PFSH Medical History Acute non-ST segment elevation myocardial infarction (05/2005) CAD (coronary artery disease) DDD (degenerative disc disease) Eczema Erectile dysfunction GERD (gastroesophageal reflux disease) Gout History of prostate cancer (~2015) HLD (hyperlipidemia) HTN (hypertension) Hypercholesteremia Left foot drop Low back pain Peanut allergy Sciatica Seasonal allergies Spinal stenosis Tachycardia Trimalleolar fracture (01/2022) Vitamin D deficiency Surgical History H/O vasectomy History of open reduction and internal fixation (ORIF) procedure (12/2021) History of open reduction and internal fixation (ORIF) procedure (1982) History of prostatectomy (~2015) Hx of heart artery stent (05/2005) Hx of shoulder surgery Social History household members: spouse Smoking Status: Former smoker alcohol intake: current Assessment & Plan Post-op Postoperative Procedures: Procedures Operation Date: 06/12/22 07:45 Actual Procedure Side Surgeon p L3-4, L4-5,L5-S1 TLIF w/ posterior Instrumentation -Robotic Juan Khanna MD Postoperative day: 2 Postoperative status narrative: -stable status post L3-4, L4-5, L5-S1 TLIF -hypotension, asymptomatic Postoperative plan narrative: -mobilize with PT/OT. Weightbearing as tolerated with front wheel walker. No bending, lifting, twisting x6 weeks -continue with multimodal pain management -hold lisinopril this morning, as his BP was 85/40 last night. He is currently at 117/80. Okay to continue metoprolol -disposition: Home, today or tomorrow. I will go check in on him later today Quality VTE Deep Vein Thrombosis/Pulmonary Embolism Present on Admission: No
--- NOTE | 2022-06-14 08:25 | PC.NURSE ---
[id number] Called and left VM with Dr. Khanna regarding pain management. Awaiting return call.
--- NOTE | 2022-06-14 08:28 | PT.IPTN ---
Current Diagnoses Foot drop, left foot (06/12/22) Spondylolisthesis, lumbar region (06/12/22) Spinal stenosis, lumbar region with neurogenic claudication (06/12/22) Surgery Performed Operation Date: 06/12/22 07:45 Actual Procedures p L3-4, L4-5,L5-S1 TLIF w/ posterior Instrumentation -Robotic - Juan Khanna MD Physical Therapy Treatment Note M2 PT-IP Current Condition Start: 06/13/22 10:14 Freq: NEEDED Status: Active Protocol: Document 06/13/22 09:45 DCW (Rec: 06/13/22 10:28 DCW [id number]) Physical Therapy Current Condition Current Condition Evaluation Date 06/13/22 Treatment Diagnosis L3-4-5-S1 TLIF Onset Date 06/12/22 M3 PT-IP Subjective Start: 06/13/22 10:14 Freq: NEEDED Status: Active Protocol: Document 06/14/22 08:50 TS (Rec: 06/14/22 09:06 TS [id number]) Subjective Physical Therapy Visit Type Type Treatment Note Visit Start Time 08:28 Visit Stop Time 08:48 Total Visit Minutes 20 Notes Vitals BP: 102/57 supine, BP 114/75 Sitting Physical Therapy Visit Comments Patient Comments Pt reports he feels better than yesterday, continues to c /o of tightness in hips. Therapy Pain Assessment Pain When Pain Assessed During Mobility Pain Present Pain Present Pain Reported M4 PT-IP Mobility and Gait Start: 06/13/22 10:14 Freq: NEEDED Status: Active Protocol: Document 06/14/22 08:50 TS (Rec: 06/14/22 09:06 TS [id number]) PT-Bed Mobility Assessment Rolling Type of Rolling Log Rolling,Roll to Right Level of Assist Standby Assistance Supine to Sit Supine to Sit Standby Assistance,1 Person Assistance Scooting Scooting to Edge of Bed Standby Assistance Scooting Up and Down in Bed Standby Assistance PT-Transfer Assessment Sit to and From Stand Sit to and from Stand Standby Assistance Equipment Transfer Assistive Device Bed Rail,Front Wheeled Walker Comments Mobility Comments Pt found resting in bed, agreeable to PT session. BP 102/57 supine, 114/75 sitting EOB. Pt performed logroll SBA, demonstrates good carryover of sequencing. Supine to sit SBA, cues for UE support and elbow pushing in bed to upright trunk. Sit to stand x1 with FWW SBA, BUE support on bed. Ambulated x300' into hallway SBA, no swaying or LOB . Stairs x18 SBA with BUE handrail assist step over step . Pt left in bed with call light nearby, all needs met. Gait Assessment Gait Gait Assistance Required: Standby Assistance Distance (Feet) 300 Able to Maintain Weight Bearing Status Yes During Gait Assistive Devices Assistive Device Front Wheeled Walker Factors Limiting Gait Function Factors Limiting Gait Function Pain Comments Gait Comments Ambulated 300' in hallway with step thru gait SBA, no LOB or buckling of LE's, denied dizziness or SOB. Stair Climbing Assessment Evaluation Level of Assist On Stairs Standby Assistance Devices Stair Climbing Assistive Devices Left Railing,Right Railing Technique/Endurance Stair Climbing Direction Ascend and Descend Stair Climbing Technique Step Over Step Number of Steps Climbed 18 Comments Stair Climbing Comments Pt performed stairs x18, SBA with BUE support railing, step over step. PT-Balance Assessment Sitting Balance and Reactions Static Sitting Balance Ability Good Dynamic Sitting Balance Ability Good Standing Balance and Reactions Static Standing Balance Ability Good Dynamic Standing Balance Ability Good M5 PT-IP Objective Assessments Start: 06/13/22 10:14 Freq: NEEDED Status: Active Protocol: Document 06/13/22 09:45 DCW (Rec: 06/13/22 10:28 DCW [id number]) Orientation Orientation/Cognition Level of Alertness Alert Orientation Name,Birthday,Month,Date,Year, Place,Situation Safety Awareness Understands Safety Issues Memory Description No Deficits Noted Gross Range of Motion Lower Extremity ROM Assessment Within Functional Limits Strength Lower Extremity Strength Assessment Within Functional Limits M6 PT-IP Treatment Start: 06/13/22 10:14 Freq: NEEDED Status: Active Protocol: Document 06/14/22 08:50 TS (Rec: 06/14/22 09:06 TS [id number]) Physical Therapy Treatment Education Education Provided Precautions Other Treatments Other Treatment Performed Pt recalled 3/3 precautions. M7 PT-IP Assessment and Plan Start: 06/13/22 10:14 Freq: NEEDED Status: Active Protocol: Document 06/14/22 08:50 TS (Rec: 06/14/22 09:06 TS [id number]) PT Summary Assessment and Plan Potential Rehabilitation Potential Excellent Status of Condition at Evaluation Stable Summary Impairments Pain,ROM,Bed Mobility, Transfers,Activity Tolerance Assessment Summary Pt performed logroll SBA, required cues for UE support and pushing through elbow to upright trunk. He ambulated 300' in hallway and bakc to room with step thru gait, no lob or buckling of LE's. Stairs x18 SBa with BUE support on railing, no LOB or buckling of LE's, denied dizziness. Pt's BP appears to be improving with BP of 102/57 in supine and 114/75 sitting EOB. PT continues to recommend return home with assist as needed from family. Goals Bed Mobility Goal Independent Transfer Goal Independent Other Goals Ambulate 200' SBA without use of AD Days to Meet Goals 2 Frequency of Treatment Frequency Of Treatment Twice a Day Treatment Plan Physical Therapy Treatment Plan Bed Mobility Training,Transfer Training,Gait Training,Post Op Education,Discharge Planning Precautions Lumbar Precautions Log Roll,No Twisting,Limit Bending,Lifting Restriction of 10 lbs,Gait Belt above Incisional Area Weight Bearing Status Weight Bearing Status Weight Bear as Tolerated Recommendations To Nursing Amount of Assist Needed 1 Person Assist Discharge Recommendations PT Discharge Recommendations Home,Home with Assistance Transportation Needs at Discharge Private Vehicle
[2022-06-14] MEDS: DOCUSATE 100 MG CAPSULE PO ×2 (08:58→21:20)
[2022-06-14] MEDS: PANTOPRAZOLE DR 20 MG TABLET PO ×2 (08:59→21:32)
--- NOTE | 2022-06-14 09:17 | PC.NURSE ---
2601 Spoke w/ Dr. Khanna over the phone and discussed pain management. Poor pain control and the continued need for IV pain medicine is the issue currently keeping patient here. Received new orders for PO Oxycontin and Dilauded. Also gave context for patient's low BP overnight - patient received blood pressure meds last night and pain meds and had a dip in BP that resolved with a 1L Bolus. Patient has already been up with PT this morning and done well.
[2022-06-14] MEDS: polyethylene glycoL 3350 17 GM POWD.PACK PO (09:23)
[2022-06-14] MEDS: OXYCODONE ER 10 MG TAB PO (10:09)
--- NOTE | 2022-06-14 11:09 | OT.IPNOTE ---
Pt resting in bed and not wanting to shower at this time. Pt's states have the option to get a shower chair and looking into getting a FWW for the pt. Pt's has good understanding of how to assist pt for all ADL needs. NO charge.
[2022-06-14] MEDS: HYDROMORPHONE 2 MG TABLET PO (11:58)
--- NOTE | 2022-06-14 12:18 | PT-IP ANOTE ---
Pt able to mobilize Ind with in room and is cleared to assist him for mobilization needs, currently no PT needs at this time.
[2022-06-14] MEDS: TRAMADOL 50 MG TABLET PO (13:33)
[2022-06-14] MEDS: HYDROMORPHONE 0.5 MG INJ IV ×2 (13:41→22:07)
[2022-06-14] MEDS: TRAMADOL 50 MG TABLET 100 MG PO ×2 (17:34→23:13)
[2022-06-14] MEDS: ATORVASTATIN 20 MG TABLET PO (21:20)
[2022-06-14] MEDS: SENNOSIDES 8.6 MG TABLET 17.2 MG PO (21:20)
[2022-06-14] MEDS: METOPROLOL ER 25 MG TABLET 12.5 MG PO (21:23)
[2022-06-14] MEDS: SODIUM CHLORIDE 0.9% FLUSH 10 ML IV ×2 (21:24→22:07)
--- NOTE | 2022-06-14 23:22 | PC.NURSE ---
Patient is alert and oriented. Breath sounds with crackles in left LL; RA sat of 94%. HRR. BP 142/82 but has had soft BP so requested to only take Metoprolol and not Lisinopril tonight. Denies nausea. BT hypoactive but is passing flatus. Is able to move himself in bed and is ambulating in subramanian with walker. Dressing to back is intact with skin surrounding dressing being reddened and warm to touch; states he is sensitive to adhesives. Also has reddened area on forehead which is reportedly from oximeter. Is wearing bilateral calf SCD's when in bed. Pain control is still an issue and received oxycodone + vistaril at 2116, scheduled tylenol, IV dilaudid at 2206 and tramadol + tizanidine at 2313 for pain 6-9; reports pain is sharp and spasms. Was also provided ice pack.
[2022-06-15 00:11] VITALS: BP 112/74; PULSE 85; RESP 18; TEMP 37.1; O2SAT 93
[2022-06-15] MEDS: OXYCODONE IR 10 MG TABLET PO ×5 (00:18→13:18)
[2022-06-15] MEDS: ACETAMINOPHEN 325 MG TABLET 650 MG PO ×2 (03:20→09:59)
[2022-06-15] MEDS: hydrOXYzine pamoate 25 MG CAPSULE PO ×2 (03:21→10:03)
[2022-06-15 04:47] VITALS: BP 108/63; PULSE 70; RESP 19; TEMP 36.6; O2SAT 96
[2022-06-15 08:49] VITALS: BP 126/77; PULSE 82; RESP 18; TEMP 37.6; O2SAT 93
[2022-06-15] MEDS: DOCUSATE 100 MG CAPSULE PO (09:21)
[2022-06-15] MEDS: SPIRONOLACTONE 25 MG TABLET PO (09:21)
[2022-06-15] MEDS: TIZANIDINE 4 MG TABLET PO (09:21)
[2022-06-15] MEDS: PANTOPRAZOLE DR 20 MG TABLET PO (09:21)
[2022-06-15] MEDS: TRAMADOL 50 MG TABLET 100 MG PO (09:21)
[2022-06-15] MEDS: OXYCODONE ER 10 MG TAB PO (09:22)
[2022-06-15] MEDS: METOPROLOL ER 25 MG TABLET 12.5 MG PO (09:24)
--- NOTE | 2022-06-15 09:36 | PC.NURSE ---
Comment: Contact Dermatitis/Mechanical rash
--- NOTE | 2022-06-15 09:40 | PC.NURSE ---
Comment: Contact Dermatitis
--- NOTE | 2022-06-15 11:52 | PM.DS.1 ---
History of Present Illness History of Present Illness Date Patient Seen: 06/15/22 Time Patient Seen: 11:52 Chief complaint: [place] Intrbody Fus./Laminotomy -Robot 06/12 Narrative: Operative Date/Time/Diagnoses Date of procedure: 06/12/22 Time of procedure: 07:40 Pre-op diagnosis: 1. Lumbar spinal stenosis with radiculopathy 2. History of laminectomy with epidural scarring and radiculopathy 3. Lumbar disc herniation with radiculopathy Post-op diagnosis: same Procedure & Clinicians Procedure: 1. L3-4, L4-5, L5-S1 Postero-lateral and posterior interbody fusion 2. L3-4, L4-5, L5-S1 interbody cage placement. 3. L3-4, L4-5, L5-S1 decompressive laminectomy with bilateral facetecomies 4. L3-4, L4-5, L5-S1 Posterior segmental instrumentation 5. [place] of bone marrow from iliac crest 6. Utilization of microsurgical technique and operating microscope 7. Utilization of robotic assisted navigation Same procedure as scheduled: Yes Indications: Patient has been having chronic back pain and worsening lumbar radiculopathy with history of work injury 2 years ago at the time of onset of his symptoms. Patient failed multiple conservative management with worsening pain weakness and numbness in his lower extremity.? Patient has been having difficulty performing activity of daily living.? After discussing risks benefits of treatment options, patient elected proceed with surgery. Surgeon: Juan Khanna Electric Meter Repairer Apprentice: Sydney Brower Click Yes if Unassisted: No Anesthesia Type: General Operative Notes Closure Type: primary Specimen(s): none sent Prosthetic devices, grafts, tissues, transplants, or devices: Globus CREO MIS screws, Rise cages Applied: catheter Estimated Blood Loss (mL): 850 Blood products transfused: none Discharge Providers Provider Date of admission: 06/12/22 06:28 Discharge Date: 06/15/22 Primary care physician: Brandi Alva MD Consults: 06/12/22 15:05 Consult to Occupational Therapy Evaluate & Treat Comment: Physician Instructions: Evaluate and treat Consult to Physical Therapy Evaluate & Treat Comment: Physician Instructions: Evaluate and Treat Discharge provider: Sydney Brower PA-C Summary Hospital Course Discharge Diagnosis: Lumbar spinal stenosis with radiculopathy; History of laminectomy with epidural scarring and radiculopathy; Lumbar disc herniation with radiculopathy, s/p lumbar fusion Hospital Course: Mr Field's hospital course was complicated by poor pain control. On POD# 3 he was feeling well and wanted to go home. He was eating and voiding without difficulty and his pain was well-controlled with oral medication. He was evaluated by PT throughout his stay and felt to be safe for discharge home. Exam Vital Signs (past 8 hours): - 06/15/22 04:47 06/15/22 08:49 Temperature 97.9 F 99.6 F Pulse Rate 70 82 Respiratory Rate 19 18 Blood Pressure 108/63 126/77 Pulse Oximetry 96 93 Oxygen Flow Rate 0 0 Oxygen Delivery Method Room Air Oxygen Flow Rate 0 Narrative Exam Narrative: 5/5 strength in hip flexors, quadriceps, hamstrings, DF, PF, EHL bilaterally. Sensation to light touch intact throughout BLE. Calves soft, compressible, nontender and without palpable cords or masses. Dressings recently changed; CDI. There is a red, flat, confluent rash in the distribution of the adhesive from the operative drapes. No skin breakdown noted. Objective Labs 06/14/22 05:33 [facility] Medical History Acute non-ST segment elevation myocardial infarction (05/2005) CAD (coronary artery disease) DDD (degenerative disc disease) Eczema Erectile dysfunction GERD (gastroesophageal reflux disease) Gout History of prostate cancer (~2015) HLD (hyperlipidemia) HTN (hypertension) Hypercholesteremia Left foot drop Low back pain Peanut allergy Sciatica Seasonal allergies Spinal stenosis Tachycardia Trimalleolar fracture (01/2022) Vitamin D deficiency Surgical History H/O vasectomy History of open reduction and internal fixation (ORIF) procedure (12/2021) History of open reduction and internal fixation (ORIF) procedure (1982) History of prostatectomy (~2015) Hx of heart artery stent (05/2005) Hx of shoulder surgery Social History household members: spouse Smoking Status: Former smoker alcohol intake: current Discharge Assessment & Plan Assessment and Plan Assessment: Lumbar spinal stenosis with radiculopathy; History of laminectomy with epidural scarring and radiculopathy; Lumbar disc herniation with radiculopathy, s/p lumbar fusion Plan of Treatment: D/c home. Multimodal pain control; will d/c w/ oxycodone 10mg #60, pt gets hydrocodone/APAP 10/325 #120/month from his PCP. Tim for contact dermatitis/eczematous reaction. Follow up in office in 2 weeks. Discharge Plan Discharge Plan Patient Disposition: Home Discharge orders & Medications Prescriptions: New oxycodone 10 mg Tablet 10 mg PO Q4H PRN (Reason: Pain, Severe (7-10)) Qty: 60 0RF hydroxyzine pamoate 25 mg Capsule 25 mg PO Q4HR PRN (Reason: muscle spasm) Qty: 120 0RF acetaminophen 325 mg Tablet 650 mg PO Q6H PRN (Reason: fever or pain) Qty: 240 0RF docusate sodium 100 mg Capsule 100 mg PO BID PRN (Reason: constipation) Qty: 60 2RF Continued lisinopril 20 mg Tablet 20 mg PO BID hydrocodone-acetaminophen 10-325 mg Tablet 1 tab PO Q4-6H PRN (Reason: Pain) aspirin 81 mg Tablet,Delayed Release (Dr/Ec) 81 mg PO DAILY sildenafil [Viagra] 100 mg Tablet 100 mg PO DAILY PRN (Reason: Sexual Activity) Rx Instructions: administer 30 minutes to 4 hours before activity spironolactone 25 mg Tablet 25 mg PO DAILY metoprolol succinate 25 mg Tablet Extended Release 24 Hr 12.5 mg PO BID rosuvastatin 10 mg Tablet 10 mg PO BEDTIME omeprazole 20 mg Tablet,Delayed Release (Dr/Ec) 20 mg PO BID tizanidine 4 mg Capsule 4 mg PO Q8H PRN (Reason: Muscle Spasm) Dupixent Syringe 200 mg/1.14 mL Syringe 200 mg SUBCUT Q2W Follow up/Referrals: Juan Khanna MD [Physician] - As previously scheduled (Follow up w/ Araseli Leon PA-C, on 06/25/2022 @ 2:30 pm at [facility] office in [place].) Brandi Alva MD [Primary Care Provider] - Diet/Activity/Treatments Diet: Diet as Tolerated Activity: No deep bending or twisting at the waist. No lifting more than 10 pounds. Cold/Heat Therapy: Heating pad to low back as needed for pain. Skin/Wound/Dressing Care Report to your healthcare provider any signs of infection, such as:: chills, fever, night sweats, unusual drainage and unusual redness Dressing: May shower; keep dressing as dry as possible. If dressing becomes wet or dirty inside, may remove and replace with clean, dry gauze. No bathing or otherwise soaking incisions. Do not apply any creams, lotions, or ointments to incisions. Visit Report/Discharge Packet Instructions: DI for Constipation, How to Prevent Falls, DI for Taking Pain Medication, DI for Transforaminal Lumbar Interbody Fusion, DI for Prescription Opioid Use Stand Alone Forms: Patient Portal/API, Stroke Signs & Symptoms, Surgery Discharge Discharge Data Primary Care Provider: Brandi Alva VTE Deep Vein Thrombosis/Pulmonary Embolism Present on Admission: No
[2022-06-15] MEDS: polyethylene glycoL 3350 17 GM POWD.PACK PO (13:18)
--- NOTE | 2022-06-15 16:10 | CM.DPNOTE ---
DC Note Discharge home today w/family and close outpatient f/u- cleared by therapy for this plan JW
--- NOTE | 2022-06-15 17:36 | PC.NURSE ---
Discharge: Pt feels ready for d/c. Likes to keep up on his pain regime. Has a rash which is extensive to his back. Pictures were taken and PA made aware and viewed same. Wound care instructions were given. Seen by PT and passed. Voiding w/out diff, Tolerates diet w/out problems. Feels pain is in control as long as he follows regime for his pain meds. Reviewed d/c packet. Questions. Follows his lami precautions. Pt d/c to home via auto w/spouse.
== END 2022-06-15 13:21 | disposition home or self-care (01) | DRG 304 ==
PROVIDERS: Physician Assistant; Admitting Provider Orthopaedic Surgery Orthopaedic Surgery of the Spine; PCP Internal Medicine; Referring Provider Orthopaedic Surgery Orthopaedic Surgery of the Spine; Visit Provider Orthopaedic Surgery Orthopaedic Surgery of the Spine
PROC: 0SG10AJ Fusion of 2 or more Lumbar Vertebral Joints with Interbody Fusion Device, Posterior Approach, Anterior Column, Open Approach (ICD-10-PCS; principal; 2022-06-12 07:45)
DX: M51.16 Intervertebral disc disorders with radiculopathy, lumbar region (principal); M48.062 Spinal stenosis, lumbar region with neurogenic claudication; M96.1 Postlaminectomy syndrome, not elsewhere classified; G89.18 Other acute postprocedural pain; K21.9 Gastro-esophageal reflux disease without esophagitis; I10 Essential (primary) hypertension; E78.5 Hyperlipidemia, unspecified; Y99.0 Civilian activity done for income or pay; Z98.890 Other specified postprocedural states; Z20.822 Contact with and (suspected) exposure to COVID-19; Z87.891 Personal history of nicotine dependence
CPT/HCPCS: 36415; 72100; 76000; 85014; 85018; 87635; 97116; 97161; 97165; 97530; 97535; C9803; C1713; C9290; J0131; J0171; J1100; J1170; J2250; J2405; J2704; J3010